=== PATIENT | male | born 1945 | race Caucasian/White ===

== ENCOUNTER 2022-05-06 06:19 | Day surgery (SDC) | payer MEDICARE, OTHER, SELFPAY ==
--- NOTE | 2022-05-05 10:04 | P.CONAN_ITS ---
Documented by User: Griselda Higgins NP 05/05/22 11:47 HPI - Anesthesia Eval Consult details Narrative: 76yo M for Upper Endoscopy with Balloon Dilitation Stable nonobstructive CAD per 04/27/22 Cardiology office visit [facility] Past Medical History Medical History CKD (chronic kidney disease) Coronary artery disease Diverticulosis Hemorrhoids Hyperlipidemia Hypertension Osteoarthritis UTI (urinary tract infection) Surgical History Surgical History History of bilateral knee replacement History of colonoscopy History of esophagogastroduodenoscopy (EGD) Social History Social History Patient Tobacco Use Status: Former Tobacco user Are you DNR?: No Advance Directives: No Advance Directives Information Provided: Yes Recently lost weight without trying: No Nutrition Risks: No Nutritional Risk Meds Allergies Allergy/AdvReac Type Severity Reaction Status Date / Time cefazolin [From [facility]] Allergy Unknown Verified 05/05/22 09:21 Home Medications Medication Instructions Recorded Confirmed Last Taken Type aspirin 81 mg tablet,delayed 81 mg PO DAILY 05/05/22 05/05/22 04/27/22 History release atorvastatin 40 mg tablet 40 mg PO DAILY 05/05/22 05/05/22 05/05/22 History metoprolol tartrate 50 mg tablet 50 mg PO BID 05/05/22 05/05/22 05/05/22 History multivitamin 1 tab PO DAILY 05/05/22 05/05/22 05/05/22 History omeprazole 40 mg capsule,delayed 40 mg PO DAILY 05/05/22 05/05/22 05/05/22 History release spironolactone 25 mg tablet 25 mg PO DAILY 05/05/22 05/05/22 05/05/22 History tamsulosin 0.4 mg capsule 0.4 mg PO DAILY 05/05/22 05/05/22 05/05/22 History valsartan 80 mg capsule 80 mg PO DAILY 05/05/22 05/05/22 05/05/22 History zolpidem 5 mg tablet 5 mg PO BEDTIME 05/05/22 05/05/22 05/05/22 History Exam Exam Date and Time: May 05, 2022 1004 Pertinent Lab Results Pertinent Lab Results: [place] [facility] [place] Na 142 K 4.5 Cl 108 CO2 108 BUN 22 Creat 1.4 (H) [place] [facility] [place] WBC 6 Hgb 10.6 (L) Hct 31.1 (L) Plt 140 (L) Narrative Narrative: ECHO 08/2021 EF 55-60% Nml RV size and function No signif valve disease Lexiscan nuc stress 2018 No evvidence of ischemia or infarct EF 83% No chest pain Assessment and Plan Assessment Anesthesia Assessment: Chart Reviewed Documented by User: Floridalma Fisher MD 05/06/22 07:40 [facility] Past Medical History Medical History CKD (chronic kidney disease) Coronary artery disease Diverticulosis Hemorrhoids Hyperlipidemia Hypertension Osteoarthritis UTI (urinary tract infection) Surgical History Surgical History History of bilateral knee replacement History of colonoscopy History of esophagogastroduodenoscopy (EGD) History of Problems with Anesthesia: No Social History Social History Patient Tobacco Use Status: Former Tobacco user Are you DNR?: No Advance Directives: No Advance Directives Information Provided: Yes Recently lost weight without trying: No Nutrition Risks: No Nutritional Risk Meds Allergies Allergy/AdvReac Type Severity Reaction Status Date / Time cefazolin [From [facility]] Allergy Unknown Verified 05/05/22 09:21 Home Medications Medication Instructions Recorded Confirmed Last Taken Type aspirin 81 mg tablet,delayed 81 mg PO DAILY 05/05/22 05/05/22 04/27/22 History release atorvastatin 40 mg tablet 40 mg PO DAILY 05/05/22 05/05/22 05/05/22 History metoprolol tartrate 50 mg tablet 50 mg PO BID 05/05/22 05/05/22 05/05/22 History multivitamin 1 tab PO DAILY 11/09/2105/05/22 05/05/22 History omeprazole 40 mg capsule,delayed 40 mg PO DAILY 05/05/22 05/05/22 05/05/22 Hi story release spironolactone 25 mg tablet 25 mg PO DAILY 05/05/22 05/05/22 05/05/22 History tamsulosin 0.4 mg capsule 0.4 mg PO DAILY 05/05/22 05/05/22 05/05/22 History valsartan 80 mg capsule 80 mg PO DAILY 05/05/22 05/05/22 05/05/22 History zolpidem 5 mg tablet 5 mg PO BEDTIME 05/05/22 05/05/22 05/05/22 History Exam Airway Mallampati Class: III (Set of permanent implants upper) TM Dist: >3cm Neck ROM: Full Loose/Missing/Broken Teeth: No Heart: RRR Lungs: CTA Assessment and Plan Final Anesthetic Review History of Problems with Anesthesia: No NPO: Yes ASA Class: III Final Preanesthetic Review: Meds/Allgs Chart Reviewed, Consent Obtained/Reviewed and Anes Risks/Benef Reviewed Patient Risk: Intermediate Procedure Risk: Intermediate Anesthetic Plan Anesthetic Plan: MAC: Disposition: Standard PACU
[2022-05-06 06:22] VITALS: BP 136/69; PULSE 71; RESP 18; TEMP 36.6; O2SAT 98; BMI 30.8
[2022-05-06] MEDS: Lactated Ringers 1,000 ML 100 ML IVCONT (06:49)
--- NOTE | 2022-05-06 07:24 | MHC.SHP ---
Pre-Procedural Eval Section A Date of Service: 05/06/22 Section B Chief Complaint: Obstruction of duodenum Details of Present Illness: see H&P no changes Relevant Family History (Specify if Yes): No Relevant Social History: None Present Medications: see Short Stay Collaborative assessment Medical History: No relevant PMH History of Previous Operations: No relevant previous surgery Allergies: Allergies Allergy/AdvReac Type Severity Reaction Status Date / Time cefazolin [From [facility]] Allergy Unknown Verified 05/05/22 09:21 Review of Systems Sugical H&P ROS: Negative: Constitution, Cardiovascular, Respiratory, Neurological, Psychiatric, Hem-Onc, Allergic/Immunologic, Gastrointestinal, Genitourinary, Musculoskeletal, Integumentary, Endocrine and Eyes/Ears/Nose/Throat Exam Surgical H&P Exam: Normal: HEENT, Normal: Heart, Normal: Lungs, Normal: Extremities, Normal: Abdomen, Normal: Skin and Normal: Neurological Plan Diagnosis/Plan: Unchanged I have reviewed the history and physical and performed a pertinent physical examination on my patient. No changes have occurred unless specified.
--- NOTE | 2022-05-06 07:53 | P.BOP_ITS ---
Brief Operative Note Date of Service: 05/06/22 Pre-op diagnosis: pyloric stricture Post-op diagnosis: same Procedure: egd Surgeon: Long De La Vega Anesthesia: MAC Was an Auto Parts Delivery Driver used for this Procedure?: No Estimated blood loss (mL): 0 Pathology: none sent Condition: stable Disposition: PACU
[2022-05-06 07:54] VITALS: BP 100/57; PULSE 66; RESP 20; TEMP 36.7; O2SAT 99
[2022-05-06 08:10] VITALS: BP 130/71; PULSE 82; RESP 16; TEMP 36.7; O2SAT 98
--- NOTE | 2022-05-06 08:43 | OP_ITS ---
SURGEON: Long De La Vega MD PREOPERATIVE DIAGNOSIS: POSTOPERATIVE DIAGNOSIS: PROCEDURE PERFORMED: ESTIMATED BLOOD LOSS: COMPLICATIONS: ANESTHESIA: ASSISTANTS: SPECIMENS: DESCRIPTION OF PROCEDURE: DATE 05/06/22 INDICATIONS: duodenal/pyloric stricture MAC anesthesia History and physical performed; the risks and benefits of the procedure were explained to the patient. Informed consent was obtained. The patient was placed in the left lateral decubitus position. The Olympus video gastroscope was introduced into the esophagus, stomach, and duodenum. Examination was performed. The scope was removed. He tolerated the procedure well and was taken to recovery area in stable condition. FINDINGS: Esophagus: The esophagus was normal. There was no esophagitis. Stomach: The stomach showed no evidence of masses, ulcers, or polyps. There was some mild inflammatory change at the pylorus with a slight stricturing effect. The scope did pass through this into the duodenum. Duodenum: The bulb and second portion were normal. Balloon dilation of the pyloric stricture was performed at 15 mm, 16.5 mm, and 18 mm with a balloon passed through the scope and inflated to its recommended pressure at each inflation diameter for 60 seconds. The stricture was widely patent at the termination of the procedure. IMPRESSION: Pyloric stricture. RECOMMENDATION: Follow up as needed. MD EARL Ford/KIERAN / [id number] MTDD
== END 2022-05-06 08:45 | disposition home or self-care (01) ==
PROVIDERS: PCP Internal Medicine; Visit Provider Internal Medicine Gastroenterology
PROC: (CPT 43245; principal; 2022-05-06 07:30)
DX: K31.5 Obstruction of duodenum (principal); K31.1 Adult hypertrophic pyloric stenosis; E78.5 Hyperlipidemia, unspecified; I25.10 Atherosclerotic heart disease of native coronary artery without angina pectoris; I12.9 Hypertensive chronic kidney disease with stage 1 through stage 4 chronic kidney disease, or unspecified chronic kidney disease; N18.9 Chronic kidney disease, unspecified; Z79.899 Other long term (current) drug therapy; Z79.82 Long term (current) use of aspirin; K57.30 Diverticulosis of large intestine without perforation or abscess without bleeding; K64.8 Other hemorrhoids; Z80.0 Family history of malignant neoplasm of digestive organs; Z87.891 Personal history of nicotine dependence
CPT/HCPCS: 43245; C1726

== ENCOUNTER 2022-10-04 06:38 | Day surgery (SDC) | payer MEDICARE, OTHER, SELFPAY ==
[2022-10-04 06:45] VITALS: BMI 31.4
[2022-10-04 06:54] VITALS: BMI 31.4
[2022-10-04 07:06] VITALS: BP 158/79; PULSE 64; RESP 16; TEMP 36.2; O2SAT 97
--- NOTE | 2022-10-04 07:12 | PC.NURSE ---
repeat BP 147/75- 60 at 0710
--- NOTE | 2022-10-04 07:19 | P.CONAN_ITS ---
HPI - Anesthesia Eval Consult details Narrative: colonoscopy [facility] Past Medical History Medical History CKD (chronic kidney disease) Coronary artery disease Diverticulosis Hemorrhoids Hyperlipidemia Hypertension Osteoarthritis UTI (urinary tract infection) Family History Family history of problems with anesthesia: No Surgical History Surgical History History of bilateral knee replacement History of colonoscopy History of esophagogastroduodenoscopy (EGD) History of Problems with Anesthesia: No Social History Social History Patient Tobacco Use Status: Former Tobacco user Use of substances other than those prescribed or required for medical reasons: No Are you DNR?: No Advance Directives: No Advance Directives Information Provided: Yes Meds Allergies Allergy/AdvReac Type Severity Reaction Status Date / Time cefazolin [From [facility]] Allergy Unknown Verified 05/05/22 09:21 Home Medications Medication Instructions Recorded Confirmed Last Taken Type aspirin 81 mg tablet,delayed 81 mg PO DAILY 05/05/22 05/05/22 10/02/22 History release atorvastatin 40 mg tablet 40 mg PO DAILY 05/05/22 05/05/22 05/05/22 History metoprolol tartrate 50 mg tablet 50 mg PO BID 05/05/22 05/05/22 10/04/22 05:00 History multivitamin 1 tab PO DAILY 05/05/22 05/05/22 05/05/22 History omeprazole 40 mg capsule,delayed 40 mg PO DAILY 05/05/22 05/05/22 05/05/22 History release spironolactone 25 mg tablet 25 mg PO DAILY 05/05/22 05/05/22 05/05/22 History tamsulosin 0.4 mg capsule 0.4 mg PO DAILY 05/05/22 05/05/22 05/05/22 History valsartan 80 mg capsule 80 mg PO DAILY 05/05/22 05/05/22 05/05/22 History zolpidem 5 mg tablet 5 mg PO BEDTIME 05/05/22 05/05/22 05/05/22 History Exam Exam Date and Time: October 04, [id number] Height,Weight and Vital Signs: Height 5 ft 6 in Weight 88.451 kg Last Vital Signs Temp 97.2 F 10/04/22 07:06 Pulse 64 10/04/22 07:06 Resp 16 10/04/22 07:06 BP 158/79 H 10/04/22 07:06 Pulse Ox 97 10/04/22 07:06 O2 Del Method Room Air 10/04/22 07:06 Airway Mallampati Class: II TM Dist: >3cm Neck ROM: Limited Heart: rrr Lungs: cta Assessment and Plan Final Anesthetic Review Family History of Problems with Anesthesia: No History of Problems with Anesthesia: No NPO: Yes ASA Class: III Final Preanesthetic Review: No Changes in Pt Med Stat, Meds/Allgs Chart Reviewed, Consent Obtained/Reviewed and Anes Risks/Benef Reviewed Patient Risk: Intermediate Procedure Risk: Low Anesthetic Plan Anesthetic Plan: MAC: and Agree w/ Assess. and Plan Disposition: Standard PACU
--- NOTE | 2022-10-04 07:21 | MHC.SHP ---
Pre-Procedural Eval Section A Date of Service: 10/04/22 Section B Chief Complaint: screening,fam hx Details of Present Illness: see H&P, no changes Relevant Family History (Specify if Yes): Yes Relevant Social History: None Present Medications: see Short Stay Collaborative assessment Medical History: No relevant PMH History of Previous Operations: No relevant previous surgery Allergies: Allergies Allergy/AdvReac Type Severity Reaction Status Date / Time cefazolin [From [facility]] Allergy Unknown Verified 05/05/22 09:21 Review of Systems Sugical H&P ROS: Negative: Constitution, Cardiovascular, Respiratory, Neurological, Psychiatric, Hem-Onc, Allergic/Immunologic, Gastrointestinal, Genitourinary, Musculoskeletal, Integumentary, Endocrine and Eyes/Ears/Nose/Throat Exam Surgical H&P Exam: Normal: HEENT, Normal: Heart, Normal: Lungs, Normal: Extremities, Normal: Abdomen, Normal: Skin and Normal: Neurological Plan Diagnosis/Plan: Unchanged I have reviewed the history and physical and performed a pertinent physical examination on my patient. No changes have occurred unless specified. Time Spent With Patient Time: Total time managing care of this patient today ____ minutes.
[2022-10-04] MEDS: Lactated Ringers 1,000 ML 50 ML IVCONT (07:29)
--- NOTE | 2022-10-04 07:57 | PM.OP ---
Brief Operative Note Date of Service: 10/04/22 Pre-op diagnosis: screening Post-op diagnosis: same Surgeon: Long De La Vega Anesthesia: MAC Was an Veterinary Assistant Technician used for this Procedure?: No Estimated blood loss (mL): 0 Pathology: none sent Condition: stable Disposition: PACU
[2022-10-04 08:00] VITALS: BP 114/60; PULSE 63; RESP 16; TEMP 36.1; O2SAT 95
[2022-10-04 08:15] VITALS: BP 137/73; PULSE 61; RESP 18; TEMP 36.1; O2SAT 96
--- NOTE | 2022-10-04 08:18 | OP_ITS ---
DATE OF SERVICE: 10/04/2022 SURGEON: Long De La Vega MD INDICATIONS: Colon cancer screening and family history of colon cancer. PREOPERATIVE DIAGNOSIS: POSTOPERATIVE DIAGNOSIS: PROCEDURE PERFORMED: Colonoscopy to the cecum. ESTIMATED BLOOD LOSS: COMPLICATIONS: ANESTHESIA: Medications: Monitored anesthesia care. ASSISTANTS: SPECIMENS: DESCRIPTION OF PROCEDURE: A history and physical was performed. The risks and benefits of the procedure were explained to the patient. Informed consent was obtained. The patient was placed in the left lateral decubitus position. A digital rectal exam was performed and was found to be normal. The Olympus pediatric video colonoscope was introduced into the rectum and advanced to the cecum without difficulty. The cecum was identified by transillumination, palpation, and identification of the ileocecal valve. Examination was performed and the scope was removed. He tolerated the procedure well and was returned to the recovery area in stable condition. FINDINGS: The terminal ileum was not examined. The visualized colonic mucosa was normal. There was some liquid stool, which limited the sensitivity examination for detection of small polyps. This was washed and suctioned as best possible. No polyps were identified. There was mild sigmoid diverticulosis. Retroflexed examination showed moderate-sized internal hemorrhoids. IMPRESSION: Normal colonoscopy. RECOMMENDATIONS: 1. Follow up as needed. 2. Repeat colonoscopy could be considered in 5 years because of family history. MD EARL Ford/MODL / [id number]
== END 2022-10-04 08:40 | disposition home or self-care (01) ==
PROVIDERS: PCP Internal Medicine; Visit Provider Internal Medicine Gastroenterology
PROC: 0DJD8ZZ Inspection of Lower Intestinal Tract, Via Natural or Artificial Opening Endoscopic (ICD-10-PCS; CPT 45378; principal; 2022-10-04 07:30)
DX: Z12.11 Encounter for screening for malignant neoplasm of colon (principal); Z80.0 Family history of malignant neoplasm of digestive organs; K57.30 Diverticulosis of large intestine without perforation or abscess without bleeding; K64.8 Other hemorrhoids; I25.10 Atherosclerotic heart disease of native coronary artery without angina pectoris; E78.5 Hyperlipidemia, unspecified; I12.9 Hypertensive chronic kidney disease with stage 1 through stage 4 chronic kidney disease, or unspecified chronic kidney disease; N18.9 Chronic kidney disease, unspecified; M19.90 Unspecified osteoarthritis, unspecified site; Z87.891 Personal history of nicotine dependence; Z79.899 Other long term (current) drug therapy; Z79.82 Long term (current) use of aspirin
CPT/HCPCS: G0105

== ENCOUNTER 2024-04-19 10:58 | Day surgery (SDC) | payer MEDICARE, SELFPAY ==
--- NOTE | 2024-04-18 09:19 | HO.ANESPROP2 ---
Documented by User: Griselda Higgins NP 04/18/24 09:24 HPI - Anesthesia Eval Consult details Narrative: 78yo M for Upper Endoscopy with Balloon Dilitation Follows [facility] cardiology for stable CAD. Last office visit 10/2023 [facility] Past Medical History Medical History Diabetes Hemorrhoids Diverticulosis CKD (chronic kidney disease) UTI (urinary tract infection) Coronary artery disease Osteoarthritis Hyperlipidemia Hypertension Family History Family history of problems with anesthesia: No Surgical History Surgical History Hx of shoulder surgery History of esophagogastroduodenoscopy (EGD) History of bilateral knee replacement History of colonoscopy History of Problems with Anesthesia: No Social History Social History Patient Tobacco Use Status: Former Tobacco user Use of substances other than those prescribed or required for medical reasons: No Are you DNR?: No Advance Directives: No Advance Directives Information Provided: Yes Meds Allergies Allergy/AdvReac Type Severity Reaction Status Date / Time cefazolin [From [facility]] Allergy Constipatio Verified 04/19/24 11:34 n Home Medications ?Medication ?Instructions ?Recorded ?Confirmed ?Last Taken ?Type atorvastatin 40 mg tablet 40 mg PO DAILY 05/05/22 04/19/24 05/05/22 History metoprolol tartrate 50 mg tablet 50 mg PO BID 05/05/22 04/19/24 04/19/24 05:30 History multivitamin 1 tab PO DAILY 05/05/22 04/19/24 05/05/22 History omeprazole 40 mg capsule,delayed 40 mg PO DAILY 05/05/22 04/19/24 05/05/22 History release spironolactone 25 mg tablet 25 mg PO DAILY 05/05/22 04/19/24 05/05/22 History tamsulosin 0.4 mg capsule 0.4 mg PO DAILY 05/05/22 04/19/24 05/05/22 History valsartan 80 mg capsule 80 mg PO DAILY 05/05/22 04/19/24 05/05/22 History zolpidem 5 mg tablet 5 mg PO BEDTIME 05/05/22 04/19/24 05/05/22 History Fish Oil 04/19/24 04/18/24 History metformin 1,000 mg tablet 1,000 mg PO BID 04/19/24 04/19/24 Unknown History Exam Pertinent Lab Results Pertinent Lab Results: WBC: 7 k/mm3 (01/31/23) RBC:?4.33 m/mm3?Low (01/31/23) Hgb:?11.8 Gm/dL?Low (01/31/23) Hct:?37.3 %?Low (01/31/23) MCV: 86.1 femtoliters (01/31/23) MCH: 27.3 pg (01/31/23) MCHC:?31.6 g/dL?Low (01/31/23) Platelet Count: 233 k/mm3 (01/31/23) RDW-SD: 46.4 femtoliters (01/31/23) Nucleated RBC (Automated): 0 #/100 WBC'S (01/31/23) Sodium: 140 mmol/L (01/31/23) Potassium: 4.7 mmol/L (01/31/23) Chloride: 107 mmol/L (01/31/23) Bicarbonate Level: 24 mmol/L (01/31/23) Glucose Level:?137 mg/dL?High (01/31/23) BUN: 21 mg/dL (01/31/23) Creatinine-Blood:?1.3 mg/dL?High (01/31/23) Calcium: 8.9 mg/dL (01/31/23) Cholesterol: 117 mg/dL (01/31/23) Triglycerides:?228 mg/dL?High (01/31/23) HDL Cholesterol: 40 mg/dL (01/31/23) LDL Cholesterol: 31 mg/dL (01/31/23) Non HDL Cholesterol: 77 mg/dL (01/31/23) Assessment and Plan Assessment Anesthesia Assessment: Chart Reviewed Final Anesthetic Review Family History of Problems with Anesthesia: No History of Problems with Anesthesia: No Documented by User: Radha Moran MD 04/19/24 12:36 [facility] Active Problems Active Problems: H/o CAD. Denies recent Chest pain. Denies h/o [place] Heart murmur Past Medical History Medical History Diabetes Hemorrhoids Diverticulosis CKD (chronic kidney disease) UTI (urinary tract infection) Coronary artery disease Osteoarthritis Hyperlipidemia Hypertension Family History Family history of problems with anesthesia: No Surgical History Surgical History Hx of shoulder surgery History of esophagogastroduodenoscopy (EGD) History of bilateral knee replacement History of colonoscopy History of Problems with Anesthesia: No Social History Social History Patient Tobacco Use Status: Former Tobacco user Use of substances other than those prescribed or required for medical reasons: No Are you DNR?: No Advance Directives: No Advance Directives Information Provided: Yes Meds Allergies Allergy/AdvReac Type Severity Reaction Status Date / Time cefazolin [From [facility]] Allergy Constipatio Verified 04/19/24 11:34 n Home Medications ?Medication ?Instructions ?Recorded ?Confirmed ?Last Taken ?Type atorvastatin 40 mg tablet 40 mg PO DAILY 05/05/22 04/19/24 05/05/22 History metoprolol tartrate 50 mg tablet 50 mg PO BID 05/05/22 04/19/24 04/19/24 05:30 History multivitamin 1 tab PO DAILY 05/05/22 04/19/24 05/05/22 History omeprazole 40 mg capsule,delayed 40 mg PO DAILY 05/05/22 04/19/24 05/05/22 History release spironolactone 25 mg tablet 25 mg PO DAILY 05/05/22 04/19/24 05/05/22 History tamsulosin 0.4 mg capsule 0.4 mg PO DAILY 05/05/22 04/19/24 05/05/22 History valsartan 80 mg capsule 80 mg PO DAILY 05/05/22 04/19/24 05/05/22 History zolpidem 5 mg tablet 5 mg PO BEDTIME 05/05/22 04/19/24 05/05/22 History Fish Oil 04/19/24 04/18/24 History metformin 1,000 mg tablet 1,000 mg PO BID 04/19/24 04/19/24 Unknown History Exam Height,Weight and Vital Signs: Height 5 ft 6 in Weight 80.739 kg Vital Signs Temp Pulse Resp BP Pulse Ox O2 Del Method 04/19/24 12:03 96.6 F L 66 16 104/73 97 Room Air Pertinent Lab Results Pertinent Lab Results: WBC: 7 k/mm3 (01/31/23) RBC:?4.33 m/mm3?Low (01/31/23) Hgb:?11.8 Gm/dL?Low (01/31/23) Hct:?37.3 %?Low (01/31/23) MCV: 86.1 femtoliters (01/31/23) MCH: 27.3 pg (01/31/23) MCHC:?31.6 g/dL?Low (01/31/23) Platelet Count: 233 k/mm3 (01/31/23) RDW-SD: 46.4 femtoliters (01/31/23) Nucleated RBC (Automated): 0 #/100 WBC'S (01/31/23) Sodium: 140 mmol/L (01/31/23) Potassium: 4.7 mmol/L (01/31/23) Chloride: 107 mmol/L (01/31/23) Bicarbonate Level: 24 mmol/L (01/31/23) Glucose Level:?137 mg/dL?High (01/31/23) BUN: 21 mg/dL (01/31/23) Creatinine-Blood:?1.3 mg/dL?High (01/31/23) Calcium: 8.9 mg/dL (01/31/23) Cholesterol: 117 mg/dL (01/31/23) Triglycerides:?228 mg/dL?High (01/31/23) HDL Cholesterol: 40 mg/dL (01/31/23) LDL Cholesterol: 31 mg/dL (01/31/23) Non HDL Cholesterol: 77 mg/dL (01/31/23) Lab Results 04/19/24 Range/Units 12:02 POC Glucose 117 H (60-115) mg/dL Airway Mallampati Class: III TM Dist: >3cm Neck ROM: Full Loose/Missing/Broken Teeth: No Heart: RRR + murmur Lungs: CTAB Assessment and Plan Assessment Anesthesia Assessment: Anesthesia Plan Discussed and Chart Reviewed Final Anesthetic Review Family History of Problems with Anesthesia: No History of Problems with Anesthesia: No NPO: Yes ASA Class: III Final Preanesthetic Review: No Changes in Pt Med Stat, Meds/Allgs Chart Reviewed, Consent Obtained/Reviewed and Anes Risks/Benef Reviewed Patient Risk: Intermediate Procedure Risk: Low Assessment/Block/Sedation in SS: Assess/Block/Sedation-SS Anesthetic Plan Anesthetic Plan: TIVA Disposition: Standard PACU
[2024-04-19 11:41] VITALS: BMI 28.7
[2024-04-19 12:03] VITALS: BP 104/73; PULSE 66; RESP 16; TEMP 35.9; O2SAT 97
[2024-04-19] MEDS: Lactated Ringers 1,000 ML 100 ML IVCONT (12:05)
[2024-04-19 12:11] LABS: Glucose, Whole Blood 117 mg/dL (60-115)
--- NOTE | 2024-04-19 12:59 | MHC.SHP ---
Pre-Procedural Eval Section A - 24 Hr Update-Section A only Date of Service: 04/19/24 The patient is an INPATIENT: No Changes since office visit: No Cold of Flu in the past 2 weeks, No New Medical Problems, No Changes in Medication and No Patient answered all questions The patient has been examined within 24 hours of the surgical procedure. The History & Physical has been completed within 30 days and I have reviewed it.: Yes Section B - Complete if H&P > 30 days Chief Complaint: Adult hypertrophic pyloric stenosis Allergies: Allergies Allergy/AdvReac Type Severity Reaction Status Date / Time cefazolin [From [facility]] Allergy Constipatio Verified 04/19/24 11:34 n Plan I have reviewed the history and physical and performed a pertinent physical examination on my patient. No changes have occurred unless specified. Time Spent With Patient Time: Total time managing care of this patient today ____ minutes.
[2024-04-19 13:39] VITALS: BP 111/65; PULSE 80; RESP 16; TEMP 36.4; O2SAT 97
[2024-04-19 13:54] VITALS: BP 114/61; PULSE 61; RESP 16; TEMP 36.4; O2SAT 96
--- NOTE | 2024-04-19 14:25 | OP_ITS ---
DATE OF SERVICE: 04/19/2024 SURGEON: Long De La Vega MD INDICATIONS: Pyloric stricture and abdominal pain PREOPERATIVE DIAGNOSIS: POSTOPERATIVE DIAGNOSIS: PROCEDURE PERFORMED: Upper endoscopy with biopsy and balloon dilation. ESTIMATED BLOOD LOSS: COMPLICATIONS: ANESTHESIA: Monitored anesthesia care. ASSISTANTS: SPECIMENS: DESCRIPTION OF PROCEDURE: A history and physical was performed. The risks and benefits of the procedure were explained to the patient. Informed consent was obtained. The patient was placed in the left lateral decubitus position. The Olympus video gastroscope was introduced into the esophagus, stomach, and duodenum. Examination was performed. The scope was removed. He tolerated the procedure well and was returned to the recovery area in stable condition. FINDINGS: Esophagus: The esophagus was normal. Stomach: Stomach showed no evidence of masses, ulcers, or polyps. There was no retained food. The pylorus appeared fairly widely patent and the scope easily passed into the duodenum. No definite stricture was identified in the bulb or 2nd portion and the scope easily passed into the 2nd portion of the duodenum. Balloon dilation of the pylorus was performed with a 20 mm balloon passed through the endoscope and inflated to its recommended pressure for 60 seconds. The duodenum and pylorus were widely patent at the termination of the procedure. Antral biopsies were obtained to evaluate for H pylori. IMPRESSION: Pyloric stricture. RECOMMENDATION: Follow up the biopsy results. MD EARL Ford/KIERAN / [id number]
== END 2024-04-19 14:18 | disposition home or self-care (01) ==
PROVIDERS: Visit Provider Internal Medicine Gastroenterology
PROC: (CPT 43245; principal; 2024-04-19 13:20)
DX: K31.1 Adult hypertrophic pyloric stenosis (principal); E11.22 Type 2 diabetes mellitus with diabetic chronic kidney disease; I12.9 Hypertensive chronic kidney disease with stage 1 through stage 4 chronic kidney disease, or unspecified chronic kidney disease; N18.9 Chronic kidney disease, unspecified; E78.5 Hyperlipidemia, unspecified; Z87.891 Personal history of nicotine dependence; Z79.84 Long term (current) use of oral hypoglycemic drugs; Z79.02 Long term (current) use of antithrombotics/antiplatelets; Z79.899 Other long term (current) drug therapy
CPT/HCPCS: 43245; 43239; 82947; 88305; 88342; C1726; J2003; J2704

== ENCOUNTER 2024-06-27 08:02 | Outpatient (AMB) | payer MEDICARE, OTHER, SELFPAY ==
--- NOTE | 2024-06-27 08:12 | MHC.OFFVIS ---
Vital Signs 06/27/24 08:13 Height 5 ft 6 in Weight 192 lb 8 oz BMI 31.1 Intake Visit Reasons: diverticulitis Intake Note: This patient presents for diverticulitis assessment. Pt c/o; reports constant pain. 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 He says that he has been having this pain after meals since around March 2024. Often times, he says he has to he was then his pajama at night because of the pain. This has been happening quite frequently. He says that he has lost maybe about 10-15 lb since that time He does have a history of pyloric stenosis and had been undergoing balloon dilatation with this in the past.. He therefore underwent an EGD with Dr. De La Vega last April, but his pylorus appeared patent. In view of his persistent complaints, he underwent a CT scan last June 10 in [facility]. 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 There was no drainable fluid collection He says he never had any fever or chills. He says that the pain is not constant. [facility] Medical History Diverticulitis of small bowel Diabetes Hemorrhoids Diverticulosis CKD (chronic kidney disease) UTI (urinary tract infection) Coronary artery disease Osteoarthritis Hyperlipidemia Hypertension Surgical History Hx of shoulder surgery History of esophagogastroduodenoscopy (EGD) History of bilateral knee replacement History of colonoscopy Social History Patient Tobacco Use Status: Former Tobacco user Review of Systems Const Denies chills and Denies fever(s) Card Denies chest pain, Denies dyspnea and Denies dyspnea on exertion Resp Denies cough, Denies dyspnea and Denies dyspnea on exertion GI Denies hematochezia and Denies change in bowel habits Denies hematuria and Denies difficulty urinating Musc Denies back pain and Denies limited range of motion Neuro Denies focal weakness and Denies convulsions Psych Denies depression and Denies mood swings Physical Exam Vital Signs: BMI result Body Mass Index 31.1 Const General: comfortable and no acute distress Orientation/consciousness: patient oriented x3 Neck Neck: Yes no lymphadenopathy Resp Auscultation: clear to auscultation bilaterally Cardio Rhythm: regular rhythm GI Palpation (GI): Soft to palpation, nontender and no guarding Neuro General: patient oriented x3 Assessment & Plan Assessment & Plan (1) Diverticulitis of small bowel: Code(s): K57.12 - Diverticulitis of small intestine without perforation or abscess without bleeding Category: Medical Plan: His CAT scan from [facility] last 06/10/2024 suggestive of a chronic contained perforated jejunal diverticulitis was possible interloop fistula formation. He actually has a very benign exam. He does not have any significant tenderness. He denies any fever or chills I am going to set him up for a follow-up CT scan with contrast. I am going to start him on oral antibiotics with Augmentin. I will review his images from [facility]. I told him that I will need to see him office to review the CT scan findings He understands that with worsening, he may need surgical intervention. He seems to understand the plan well. His was with him during the visit. Orders: Orders Blood Urea Nitrogen 06/27/24 K57.12 - Diverticulitis of small intestine without perforation or abscess without bleeding Creatinine 06/27/24 K57.12 - Diverticulitis of small intestine without perforation or abscess without bleeding CT abdomen pelvis w IV con 06/27/24 K57.12 - Diverticulitis of small intestine without perforation or abscess without bleeding Medications: New amoxicillin-pot clavulanate 875-125 mg 1 tab PO BID 20 tabs 0RF Coding Level of Care Code New Pt Level 4 (62638) Diagnoses Diverticulitis of small bowel K57.12
[2024-06-27 08:13] VITALS: BMI 31.1
== END 2024-06-27 08:56 | disposition home or self-care (01) ==
PROVIDERS: PCP Internal Medicine; Visit Provider Surgery
DX: K57.12 Diverticulitis of small intestine without perforation or abscess without bleeding (principal)
CPT/HCPCS: 99204

== ENCOUNTER 2024-07-16 11:02 | Outpatient (REF) | payer MEDICARE, OTHER, SELFPAY ==
--- NOTE | ~2024-07-16 | CT_ITS ---
EXAMINATION: CT ABDOMEN AND PELVIS WITH CONTRAST CLINICAL INFORMATION: Diverticulitis of small intestine. COMPARISON: None available. TECHNIQUE: Multidetector volumetric images were obtained from the superior aspect of the liver through the pubic symphysis following administration 85 mL of Omnipaque 350 intravenous contrast. Sagittal and coronal reformatted images were obtained on the technologist's workstation. Oral contrast: No This CT examination was performed using dose optimization techniques as appropriate, variously including the following: *Automated exposure control *Adjustment of mA and/or kV according to patient size (this includes techniques or standardized protocols for targeted exams where dose is matched to indication/reason for exam; i.e. extremities or head) *Use of iterative reconstruction technique. DLP 416 mGy/cm. FINDINGS: LUNG BASES: The visualized lung bases are unremarkable. There is mild coronary artery calcifications. No pericardial or pleural effusion seen. LIVER, GALLBLADDER, AND BILIARY TREE: The liver is normal in size, shape, and attenuation. No focal hepatic lesion or biliary ductal dilatation is present. The gallbladder is unremarkable with no evidence of radiopaque gallstones, gallbladder wall thickening, or obvious pericholecystic inflammatory changes. PANCREAS: Unremarkable. SPLEEN: The spleen is unremarkable. There 8 mm small splenic artery aneurysm. ADRENAL GLANDS: Unremarkable. KIDNEYS AND URETERS: The kidneys are normal in size, shape, and attenuation. No hydronephrosis, hydroureter, or calculi seen. No perinephric stranding. There are nonenhancing 2.7 cm cyst mid pole right kidney. BLADDER: Unremarkable. GASTROINTESTINAL TRACT: The few scattered diverticuli in the colon. Otherwise small and large bowel are unremarkable. No bowel distention, free air or free fluid. The appendix is unremarkable. ABDOMINAL WALL: No significant hernia is appreciated. LYMPH NODES: Normal. VASCULAR: Unremarkable. PELVIC VISCERA: Unremarkable. OSSEOUS STRUCTURES: There is no aggressive lytic or sclerotic process seen. Mild ventral spondylosis L2-3, L3-4 and L4-[address]/CT abdomen pelvis w IV con IMPRESSION: No acute intra-abdominal process seen. There is mild L4-5 and L5-S1 facet joint arthropathy. Fleischner guidelines were followed. Electronically signed by: Edmar Root MD 07/16/2024 12:20 PM [facility]
[2024-07-16] MEDS: iohexoL 350 MG/ML 100 ML INFUS..BTL 85 ML IV (12:37)
== END 2024-07-16 11:03 | disposition home or self-care (01) ==
LOC: HO.CT 11:02
PROVIDERS: PCP Internal Medicine; Visit Provider Surgery
DX: K57.12 Diverticulitis of small intestine without perforation or abscess without bleeding (principal)
CPT/HCPCS: 74177; Q9967

== ENCOUNTER → 2024-07-16 11:04 | Outpatient (BNV) | payer MEDICARE, OTHER, SELFPAY | PROVIDERS: PCP Internal Medicine; Visit Provider Radiology Diagnostic Radiology | DX: M46.96 Unspecified inflammatory spondylopathy, lumbar region (principal) | CPT/HCPCS: 74177 ==

== ENCOUNTER 2024-07-25 08:03 | Outpatient (AMB) | payer MEDICARE, OTHER, SELFPAY ==
--- NOTE | 2024-07-25 08:15 | MHC.OFFVIS ---
Vital Signs 07/25/24 08:25 Height 5 ft 6 in Weight 189 lb 2 oz BMI 30.5 BP 140/71 H Blood Pressure Location Lt brachial Position Sitting Pulse 77 Intake Visit Reasons: CT Results Intake Note: This patient presents for CT-Scan follow-up. Pt c/o; no new concerns. 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 Accompanied by: Spouse Allergies cefazolin [From Anc] Allergy (Verified 07/25/24 08:26) Constipation Medication List - Last Reconciled 07/25/24 by Rodney Moise MD amoxicillin-pot clavulanate 875-125 mg 1 tab PO BID atorvastatin 40 mg PO DAILY barium sulfate 2%(w/v) (Readi-Cat 2) 900 mL PO ONCE [Fish Oil ] metformin 1,000 mg PO BID metoprolol tartrate 50 mg PO BID multivitamin 1 tab PO DAILY omeprazole 40 mg PO DAILY spironolactone 25 mg PO DAILY tamsulosin 0.4 mg PO DAILY valsartan 80 mg PO DAILY zolpidem 5 mg PO BEDTIME HPI HPI CT Results: Details: He is here for follow-up for a history of small-bowel diverticulitis in June,. He had imaging studies done in [facility] suggesting an enteroenteric fistula as well He says that he has been feeling well and denies any significant abdominal complaints. He has good oral intake. He denies happens with bowel movements. He did mentioned that he often has irritation from his belt along his waist on the anterior abdomen. He denies any weight loss. [facility] Medical History Diverticulitis of small bowel Diabetes Hemorrhoids Diverticulosis CKD (chronic kidney disease) UTI (urinary tract infection) Coronary artery disease Osteoarthritis Hyperlipidemia Hypertension Surgical History Hx of shoulder surgery History of esophagogastroduodenoscopy (EGD) History of bilateral knee replacement History of colonoscopy Social History Patient Tobacco Use Status: Former Tobacco user Review of Systems Const Denies chills and Denies fever(s) Card Denies chest pain, Denies dyspnea and Denies dyspnea on exertion Resp Denies cough, Denies dyspnea and Denies dyspnea on exertion GI Denies hematochezia and Denies change in bowel habits Denies hematuria and Denies difficulty urinating Musc Denies back pain and Denies limited range of motion Neuro Denies focal weakness and Denies convulsions Psych Denies depression and Denies mood swings Physical Exam Vital Signs: Last Vital Signs Pulse 77 07/25/24 08:25 BP 140/71 H 07/25/24 08:25 BMI result Body Mass Index 30.5 Const General: comfortable and no acute distress Resp Effort & Inspection: normal respiratory effort Cardio Rate: regular rate GI Palpation (GI): Soft to palpation, not firm, nontender and no guarding Assessment & Plan Assessment & Plan (1) Diverticulitis of small bowel: Code(s): K57.12 - Diverticulitis of small intestine without perforation or abscess without bleeding Category: Medical Plan: I have reviewed his CAT scan done last week. This does not reveal any signs of diverticulitis of the small bowel. There were no matted bowel loops. There were no inflammatory changes I explained to him the above findings. His abdominal exam is benign. Clinically he seems to be where well. I told him that he does not require any surgical intervention. I did tell him that if he has concerns or issues with his abdomen again down the line, he was welcome to come back to the office to be re-evaluated. He seems to understand the plan well I did find him to continue to follow up with his doctors for his diabetes. Coding Level of Care Code Est Pt Level 3 (38768) Diagnoses Diverticulitis of small bowel K57.12
[2024-07-25 08:25] VITALS: BP 140/71; PULSE 77; BMI 30.5
== END 2024-07-25 08:44 | disposition home or self-care (01) ==
PROVIDERS: PCP Internal Medicine; Visit Provider Surgery
DX: K57.12 Diverticulitis of small intestine without perforation or abscess without bleeding (principal)
CPT/HCPCS: 99213

== ENCOUNTER → 2024-07-25 08:03 | Outpatient (BNVA) | payer MEDICARE, OTHER, SELFPAY | PROVIDERS: PCP Internal Medicine; Visit Provider Surgery | DX: K57.12 Diverticulitis of small intestine without perforation or abscess without bleeding (principal) | CPT/HCPCS: 99212 ==